=== PATIENT | male | born 2005 | race Two or more races ===

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

== ENCOUNTER 2024-07-29 19:48 | Emergency (ER) | payer MEDICAID ==
[2024-07-29] MEDS ORDERED: Amoxicillin 500 MG Cap ONE (20:00)
[2024-07-29 23:20] VITALS: BP 114/58; PULSE 91
== END 2024-07-29 20:18 | disposition home or self-care (01) ==
LOC: LB.ED 19:48
DX: L73.9 Follicular disorder, unspecified (principal); Z88.2 Allergy status to sulfonamides; Z79.899 Other long term (current) drug therapy
CPT/HCPCS: 99282; 99283; A9270-GY